=== PATIENT | male | born 1945 | race Caucasian/White ===

== ENCOUNTER 2017-12-18 16:08 | Emergency (ER) | payer MEDICARE ==
--- NOTE | 2017-12-18 16:42 | ER Document Report ---
ED Medical Screen (RME) - General Chief Complaint: Abnormal Lab Results Stated Complaint: ABNORMAL LABS Time Seen by Provider: 12/18/17 16:34 Notes: Patient told to come here due to abnormal labs. Apparently had a chemistry and lithium level performed as an outpatient a few days ago. Was told to come to the ED ER because of a high lithium and high potassium level. Patient states that he just does not feel good. Has been on antibiotics for 10 days for possible pneumonia I have greeted and performed a rapid initial assessment of this patient. A comprehensive ED assessment and evaluation of the patient, analysis of test results and completion of the medical decision making process will be conducted by additional ED providers. TRAVEL OUTSIDE OF THE [place] IN LAST 30 DAYS: No - Related Data Allergies/Adverse Reactions: No Known Drug Allergies Allergy (Verified 12/18/17 16:08) rabies immune globulin Allergy (Verified 12/18/17 16:10) Past Medical History Renal/ Medical History: Denies: Hx Peritoneal Dialysis Psychiatric Medical History: Reports: Hx Bipolar Disorder Past Surgical History: Reports: Hx Tonsillectomy Physical Exam - Vital signs Vitals: Temp Pulse Resp BP Pulse Ox 98.4 F 97 16 116/66 96 12/18/17 16:12 12/18/17 16:12 12/18/17 16:12 12/18/17 16:12 12/18/17 16:12 Course - Vital Signs Vital signs: Temp Pulse Resp BP Pulse Ox 98.4 F 97 16 116/66 96 12/18/17 16:12 12/18/17 16:12 12/18/17 16:12 12/18/17 16:12 12/18/17 16:12 Doctor's Discharge - Discharge Referrals: RADHIKA SAMANIEGO PA-C [Primary Care Provider] - Follow up as needed
--- NOTE | 2017-12-18 17:00 | RADIOLOGY REPORT (SQ) ---
EXAM DESCRIPTION: CHEST 2 VIEWS COMPLETED DATE/TIME: 12/18/2017 4:51 pm REASON FOR STUDY: cough COMPARISON: CT chest 11/29/2017 EXAM PARAMETERS: NUMBER OF VIEWS: two views TECHNIQUE: Digital Frontal and Lateral radiographic views of the chest acquired. RADIATION DOSE: NA LIMITATIONS: none FINDINGS: LUNGS AND PLEURA: A small left pleural effusion remains. No consolidation. No pneumothor ax. MEDIASTINUM AND HILAR STRUCTURES: No masses or contour abnormalities. HEART AND VASCULAR STRUCTURES: Heart normal size. No evidence for failure. BONES: No acute findings. HARDWARE: None in the chest. OTHER: No other significant finding. IMPRESSION: Small left pleural effusion. Overall findings are improved when compared to prior CTA c hest. TECHNICAL DOCUMENTATION: JOB ID: [id number] [employer]- All Rights Reserved Reading location - IP/workstation name: [email or web address]
[2017-12-18 17:32] LABS: ABSOLUTE BASOPHILS # (AUTO) 0.1 10^3/uL (0.0-0.2); ABSOLUTE EOSINOPHILS # (AUTO) 0.8 10^3/uL (0.0-0.6); ABSOLUTE LYMPHOCYTES (AUTO) 0.7 10^3/uL (0.5-4.7); ABSOLUTE MONOCYTES (AUTO) 0.7 10^3/uL (0.1-1.4); BASOPHILS % (AUTO) 0.9 % (0-2); EOSINOPHILS % (AUTO) 6.9 % (0-6); HEMATOCRIT 35.5 % (37.9-51.0); HEMOGLOBIN 11.6 g/dL (13.5-17.0); LYMPHOCYTES % (AUTO) 6.3 % (13-45); MEAN CORPUSCULAR HEMOGLOBIN 29.8 pg (27.0-33.4); MEAN CORPUSCULAR HGB CONC 32.6 g/dL (32.0-36.0); MEAN CORPUSCULAR VOLUME 91 fl (80-97); MONOCYTES % (AUTO) 6.1 % (3-13); PLATELET COUNT 250 10^3/uL (150-450); RED BLOOD COUNT 3.88 10^6/uL (4.35-5.55); RED CELL DISTRIBUTION WIDTH 14.2 % (11.5-14.0); SEGMENTED NEUTROPHILS % (AUTO) 79.8 % (42-78); TOTAL CELLS COUNTED % (AUTO) 100 %; WHITE BLOOD COUNT 11.2 10^3/uL (4.0-10.5)
[2017-12-18 17:40] LABS: APPEARANCE,URINE SLIGHTLY-CLOUDY; BILIRUBIN,URINE NEGATIVE (NEGATIVE); COLOR,URINE YELLOW; GLUCOSE, URINE NEGATIVE (NEGATIVE); KETONES,URINE NEGATIVE (NEGATIVE); LEUKOCYTE ESTERASE,URINE TRACE (NEGATIVE); NITRITE,URINE NEGATIVE (NEGATIVE); PROTEIN,URINE NEGATIVE (NEGATIVE); URINE SPECIFIC GRAVITY 1.012; UROBILINOGEN,URINE NEGATIVE mg/dL (<2.0)
[2017-12-18 17:48] LABS: ALANINE AMINOTRANSFERASE 44 U/L (21-72); ALKALINE PHOSPHATASE 88 U/L (38-126); ANION GAP 8 (5-19); ASPARTATE AMINO TRANSFERASE 25 U/L (17-59); BILIRUBIN,DIRECT 0.3 mg/dL (0.0-0.4); BILIRUBIN,TOTAL 0.4 mg/dL (0.2-1.3); BLOOD UREA NITROGEN 24 mg/dL (7-20); CALCIUM 10.5 mg/dL (8.4-10.2); CARBON DIOXIDE 25 mmol/L (22-30); CHLORIDE 109 mmol/L (98-107); CREATINE KINASE 29 U/L (55-170); GLUCOSE 138 mg/dL (75-110); POTASSIUM 5.8 mmol/L (3.6-5.0); TOTAL PROTEIN 6.8 g/dL (6.3-8.2)
[2017-12-18 17:51] LABS: LITHIUM 2.2 mEq/L (0.6-1.2)
--- NOTE | 2017-12-18 18:18 | ER Document Report ---
ED General - General Mode of Arrival: Ambulatory Information source: Patient TRAVEL OUTSIDE OF THE [place] IN LAST 30 DAYS: No <ANAHI HENDERSON - Last Filed: 12/18/17 22:11> <HUGO SCHOFIELD - Last Filed: 12/18/17 23:45> - General Chief Complaint: Abnormal Lab Results Stated Complaint: ABNORMAL LABS Time Seen by Provider: 12/18/17 16:34 Notes: Patient is a 69-year-old male who was sent to the emergency department from his PCP's office due to elevated lithium and potassium levels. Patient states that he went to see his PCP on 12/16/2015 due to shaking and had blood work drawn. Patient states that his PCP suggested he was having a reaction between his Bagnell and Levaquin further stating he was placed on Levaquin due to a possible pneumonia. Patient mentions that he has been having a problem with shaking lately which is abnormal for him. Patient is a poor historian therefore a limited history was obtained. Contacted patient's pharmacy, patient is currently prescribed Lisinopril 10mg, Simvastatin 40gm daily, Bagnell(300 mg 2 tabs at bedtime) and Levaquin 500mg for 10 days which was prescribed on 11/29/2017. (ANAHI HENDERSON) - Related Data Allergies/Adverse Reactions: No Known Drug Allergies Allergy (Verified 12/18/17 16:08) rabies immune globulin Allergy (Verified 12/18/17 16:10) Past Medical History - General Information source: Patient, Outside Facility Records - Social History Smoking Status: Unknown if Ever Smoked Family History: Reviewed & Not Pertinent Patient has suicidal ideation: No Patient has homicidal ideation: No Psychiatric Medical History: Reports: Hx Bipolar Disorder Past Surgical History: Reports: Hx Tonsillectomy <ANAHI HENDERSON - Last Filed: 12/18/17 22:11> Review of Systems - Review of Systems Constitutional: See HPI EENT: No symptoms reported Cardiovascular: No symptoms reported Respiratory: No symptoms reported Gastrointestinal: No symptoms reported Genitourinary: No symptoms reported Male Genitourinary: No symptoms reported Musculoskeletal: See HPI Skin: No symptoms reported Hematologic/Lymphatic: No symptoms reported Neurological/Psychological: See HPI -: Yes All other systems reviewed and negative <ANAHI HENDERSON - Last Filed: 12/18/17 22:11> Physical Exam <ANAHI HENDERSON - Last Filed: 12/18/17 22:11> <HUGO SCHOFIELD - Last Filed: 12/18/17 23:45> - Vital signs Vitals: Temp Pulse Resp BP Pulse Ox 98.4 F 97 16 116/66 96 12/18/17 16:12 12/18/17 16:12 12/18/17 16:12 12/18/17 16:12 12/18/17 16:12 - Notes Notes: GENERAL: Alert, interacts well. No acute distress. HEAD: Normocephalic, atraumatic. EYES: Pupils equal, round, and reactive to light. Extraocular movements intact. ENT: Oral mucosa moist, tongue midline. NECK: Full range of motion. Supple. Trachea midline. LUNGS: Clear to auscultation bilaterally, no wheezes, rales, or rhonchi. No respiratory distress. HEART: Regular rate and rhythm. No murmurs, gallops, or rubs. ABDOMEN: Soft, non-tender. Non-distended. Bowel sounds present in all 4 quadrants. EXTREMITIES: Moves all 4 extremities spontaneously. No edema, radial and dorsalis pedis pulses 2/4 bilaterally. No cyanosis. NEUROLOGICAL: Alert and oriented x3. Normal speech. Slight tremor. PSYCH: Normal affect, normal mood. SKIN: Warm, dry, normal turgor. No rashes or lesions noted. (ANAHI HENDERSON) Course - Laboratory Result Diagrams: 12/18/17 16:46 12/18/17 16:46 <ANAHI HENDERSON - Last Filed: 12/18/17 22:11> - Laboratory Result Diagrams: 12/18/17 16:46 12/18/17 22:24 <HUGO SCHOFIELD - Last Filed: 12/18/17 23:45> - Re-evaluation Re-evalutation: 12/18/17 23:34 After 3 L of IV fluids, repeat lab work shows a lithium level has fallen to 2.0 , potassium fall and 5.0 The patient will be discharged with instructions to stop taking the lithium, drink lots of water and other fluids over the next few days. He should follow-up with his primary care provider today or tomorrow for recheck. 12/18/17 23:41 The patient has urinated at least once. 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 He is asking for something to eat before he is discharged as he is quite hungry. (HUGO SCHOFIELD) - Vital Signs Vital signs: Temp Pulse Resp BP Pulse Ox 97.9 F 97 23 H 124/78 100 12/18/17 20:00 12/18/17 16:12 12/18/17 22:02 12/18/17 22:02 12/18/17 22:02 - Laboratory Laboratory results interpreted by me: 12/18/17 12/18/17 12/18/17 16:46 16:46 16:46 WBC 11.2 H RBC 3.88 L Hgb 11.6 L Hct 35.5 L RDW 14.2 H Seg Neutrophils % 79.8 H Lymphocytes % 6.3 L Eosinophils % 6.9 H Absolute Neutrophils 9.0 H Absolute Eosinophils 0.8 H Potassium 5.8 H Chloride 109 H Carbon Dioxide BUN 24 H Creatinine 1.42 H Est GFR ( Amer) 59 L Est GFR (Non-Af Amer) 49 L Glucose 138 H Calcium 10.5 H Creatine Kinase 29 L Ur Leukocyte Esterase TRACE H Bagnell 2.2 H* 12/18/17 22:24 WBC RBC Hgb Hct RDW Seg Neutrophils % Lymphocytes % Eosinophils % Absolute Neutrophils Absolute Eosinophils Potassium Chloride 114 H Carbon Dioxide 20 L BUN 21 H Creatinine Est GFR ( Amer) Est GFR (Non-Af Amer) 59 L Glucose Calcium Creatine Kinase Ur Leukocyte Esterase Bagnell 2.0 H* Discharge <ANAHI HENDERSON - Last Filed: 12/18/17 22:11> <HUGO SCHOFIELD - Last Filed: 12/18/17 23:45> - Discharge Clinical Impression: Hyperkalemia Bagnell toxicity Qualifiers: Encounter type: initial encounter Injury intent: accidental or unintentional Qualified Code(s): T56.891A - Toxic effect of other metals, accidental ( unintentional), initial encounter Condition: Stable Disposition: HOME, SELF-CARE Additional Instructions: Your lithium level was 2.2, the upper limits of the normal range is 1.2 After 3 L of IV fluids, your lithium level was down to 2.0 Your potassium level was also quite elevated but did come down with IV fluids. Your lab work suggests that you have become dehydrated due to inadequate fluid intake. It is very important that you drink plenty of water over the 24 hours. Stop taking the lithium until you see your doctor on for recheck. Follow-up with your doctor on . RETURN TO THE EMERGENCY ROOM IF ANY NEW OR WORSENING SYMPTOMS. Referrals: RADHIKA SAMANIEGO PA-C [Primary Care Provider] - 12/20/17 Scribe Attestation: 12/18/17 23:45 I personally performed the services described in the documentation, reviewed and edited the documentation which was dictated to the scribe in my presence, and it accurately records my words and actions. (HUGO SCHOFIELD) Scribe Documentation - Scribe Written by Margaux:: Margaux Mart, 12/18/2017 18:20 acting as scribe for :: Jigar <ANAHI HENDERSON - Last Filed: 12/18/17 22:11>
[2017-12-18] MEDS: NORMAL SALINE 1000 ML 1,000 ML IV PRN ×3 (18:19→19:13)
[2017-12-18] MEDS ORDERED: NORMAL SALINE 1000 ML 1,000 ML IV ONE (20:55)
[2017-12-18 23:03] LABS: ANION GAP 5 (5-19); BLOOD UREA NITROGEN 21 mg/dL (7-20); CALCIUM 8.7 mg/dL (8.4-10.2); CARBON DIOXIDE 20 mmol/L (22-30); CHLORIDE 114 mmol/L (98-107); GLUCOSE 86 mg/dL (75-110); SODIUM 139.1 mmol/L (137-145)
[2017-12-19 00:06] VITALS: BP 130/81
== END 2017-12-19 00:15 | disposition home or self-care (01) ==
LOC: ER 16:08
DX: E87.5 Hyperkalemia (principal); T56.891A Toxic effect of other metals, accidental (unintentional), initial encounter; R79.9 Abnormal finding of blood chemistry, unspecified; R25.1 Tremor, unspecified; Z79.899 Other long term (current) drug therapy
CPT/HCPCS: 36415; 71046; 80048; 80053; 80178; 81001; 82550; 85025; 96360; 96361; 99284

== ENCOUNTER 2018-02-18 10:53 | Inpatient (IN) | payer MEDICARE ==
--- NOTE | 2018-02-18 10:59 | ER Document Report ---
ED General - General Stated Complaint: CHEST PAIN Time Seen by Provider: 02/18/18 10:59 TRAVEL OUTSIDE OF THE [place] IN LAST 30 DAYS: No - HPI Patient complains to provider of: Chest pain Onset: Other - 73-year-old man presents for evaluation of shortness of breath and chest pain which began yesterday with the onset of discomfort tossing and turning followed by some shortness of breath which prompted him to go to his primary physician's office this morning at which time they noted his heart rate to be very fast and called for an ambulance. - Related Data Allergies/Adverse Reactions: No Known Drug Allergies Allergy (Verified 12/18/17 16:08) rabies immune globulin Allergy (Verified 12/18/17 16:10) Past Medical History - General Information source: Patient, Relative - Social History Smoking Status: Former Smoker Smoking Education Provided: No Frequency of alcohol use: None Drug Abuse: None Lives with: Family Family History: Reviewed & Not Pertinent Renal/ Medical History: Denies: Hx Peritoneal Dialysis Psychiatric Medical History: Reports: Hx Bipolar Disorder Past Surgical History: Reports: Hx Tonsillectomy Review of Systems - Review of Systems -: Yes All other systems reviewed and negative Physical Exam - Vital signs Vitals: BP 117/92 H 02/18/18 10:59 Interpretation: Tachycardic - General General appearance: Appears well, Alert - HEENT Head: Normocephalic, Atraumatic Eyes: Normal Pupils: PERRL - Respiratory Respiratory status: No respiratory distress Chest status: Nontender Breath sounds: Normal Chest palpation: Normal - Cardiovascular Rhythm: Irregularly irregular, Tachycardia - Abdominal Inspection: Normal Distension: No distension Bowel sounds: Normal Tenderness: Nontender Organomegaly: No organomegaly - Back Back: Normal, Nontender - Extremities General upper extremity: Normal inspection, Nontender, Normal color, Normal ROM , Normal temperature General lower extremity: Normal inspection, Nontender, Normal color, Normal ROM , Normal temperature, Normal weight bearing. No: Sean's sign - Neurological Neuro grossly intact: Yes Cognition: Normal Orientation: AAOx4 Carlisle Coma Scale Eye Opening: Spontaneous Carl[place] Coma Scale Verbal: Oriented Basim Coma Scale Motor: Obeys Commands Basim Coma Scale Total: 15 Speech: Normal Motor strength normal: LUE, RUE, LLE, RLE Sensory: Normal - Psychological Associated symptoms: Normal affect, Normal mood Course - Re-evaluation Re-evalutation: 02/19/18 13:03 73-year-old male presents for evaluation of tachycardia cardia. Notes that he had been short of breath with some chest pain prior presented to his primary physicians today at which time his heart rate was noted to be around 180 bpm. EMS upon arrival administered 500 mL of normal saline which improved his heart rate from the 180 range to the 120 or H. Initial evaluation is notable that this patient is profoundly tachycardic. 02/19/18 15:05 He was given diltiazem 10 mg after which his heart rate improved however remained tachycardic. He continued to be well-appearing though stating that he felt much better. I did administer fluids and recurrent 500 mL boluses and redosed his diltiazem at 10 mg. He had only a moderate improvement in his rate again, because of his persistent tachycardia chest pain and new onset fibrillation believe he will shall require hospitalization. His EKG did demonstrate slight depressions consistent with a strain pattern. He however said he felt much better after administration of medications. I did check a lithium level in addition to his cardiac markers to see if incidentally he had become supratherapeutic. His lithium level was in normal limits. Contacted the on-call hospitalist for the admission and monitoring of this patient, at the time of admission he remained tachycardic. - Vital Signs Vital signs: Temp Pulse Resp BP Pulse Ox 98.3 F 81 18 147/86 H 96 02/19/18 16:53 02/19/18 16:53 02/19/18 16:53 02/19/18 16:12 02/19/18 16:53 - Laboratory Result Diagrams: 02/19/18 05:22 02/19/18 05:22 Laboratory results interpreted by me: 02/18/18 02/18/18 10:25 10:25 WBC 12.6 H RDW 14.9 H Absolute Neutrophils 9.1 H Sodium 145.9 H Calcium 10.8 H Creatine Kinase 47 L Critical Care Note - Critical Care Note Total time excluding time spent on procedures (mins): 35 Discharge - Discharge Clinical Impression: Atrial fibrillation with RVR Atrial fibrillation Qualifiers: Atrial fibrillation type: unspecified Qualified Code(s): I48.91 - Unspecified atrial fibrillation Chest pain Qualifiers: Chest pain type: unspecified Qualified Code(s): R07.9 - Chest pain, unspecified Condition: Good Disposition: ADMITTED INPATIENT Admitting Provider: Hospitalist Unit Admitted: Telemetry
[2018-02-18] MEDS ORDERED: NORMAL SALINE 500 ML IV ONE ×2 (11:07→12:41)
[2018-02-18] MEDS ORDERED: DILTIAZEM HCL INJ 25 MG/5 ML VIAL IV ONE ×2 (11:15→12:41)
[2018-02-18 11:32] LABS: ABSOLUTE BASOPHILS # (AUTO) 0.1 10^3/uL (0.0-0.2); ABSOLUTE EOSINOPHILS # (AUTO) 0.2 10^3/uL (0.0-0.6); ABSOLUTE MONOCYTES (AUTO) 1.2 10^3/uL (0.1-1.4); ABSOLUTE NEUT (AUTO) 9.1 10^3/uL (1.7-8.2); BASOPHILS % (AUTO) 0.7 % (0-2); HEMATOCRIT 42.5 % (37.9-51.0); HEMOGLOBIN 14.2 g/dL (13.5-17.0); LYMPHOCYTES % (AUTO) 16.2 % (13-45); MEAN CORPUSCULAR HEMOGLOBIN 29.8 pg (27.0-33.4); MEAN CORPUSCULAR HGB CONC 33.4 g/dL (32.0-36.0); MEAN CORPUSCULAR VOLUME 89 fl (80-97); MONOCYTES % (AUTO) 9.2 % (3-13); PLATELET COUNT 245 10^3/uL (150-450); RED BLOOD COUNT 4.77 10^6/uL (4.35-5.55); RED CELL DISTRIBUTION WIDTH 14.9 % (11.5-14.0); SEGMENTED NEUTROPHILS % (AUTO) 71.9 % (42-78); TOTAL CELLS COUNTED % (AUTO) 100 %; WHITE BLOOD COUNT 12.6 10^3/uL (4.0-10.5)
[2018-02-18 11:56] LABS: ALANINE AMINOTRANSFERASE 26 U/L (21-72); ALBUMIN 4.7 g/dL (3.5-5.0); ALKALINE PHOSPHATASE 65 U/L (38-126); ANION GAP 14 (5-19); ASPARTATE AMINO TRANSFERASE 27 U/L (17-59); BILIRUBIN,DIRECT 0.3 mg/dL (0.0-0.4); BILIRUBIN,TOTAL 0.7 mg/dL (0.2-1.3); BLOOD UREA NITROGEN 13 mg/dL (7-20); CALCIUM 10.8 mg/dL (8.4-10.2); CARBON DIOXIDE 26 mmol/L (22-30); CHLORIDE 106 mmol/L (98-107); CREATINE KINASE 47 U/L (55-170); GLUCOSE 106 mg/dL (75-110); LITHIUM 0.6 mEq/L (0.6-1.2); POTASSIUM 4.9 mmol/L (3.6-5.0); SODIUM 145.9 mmol/L (137-145); TOTAL PROTEIN 7.9 g/dL (6.3-8.2)
--- NOTE | 2018-02-18 12:22 | RADIOLOGY REPORT (SQ) ---
EXAM DESCRIPTION: CHEST SINGLE VIEW COMPLETED DATE/TIME: 02/18/2018 11:24 am REASON FOR STUDY: bed 4 cp COMPARISON: B 12/18/2017 EXAM PARAMETERS: NUMBER OF VIEWS: One view. TECHNIQUE: Single frontal radiographic view of the chest acquired. RADIATION DOSE: NA LIMITATIONS: None. FINDINGS: LUNGS AND PLEURA: No opacities, masses or pneumothorax. Interval resolution of the very s mall left pleural effusion. MEDIASTINUM AND HILAR STRUCTURES: No masses. Contour normal. HEART AND VASCULAR STRUCTURES: Heart normal in size. Normal vasculature. BONES: No acute findings. HARDWARE: None in the chest. OTHER: No other significant finding. IMPRESSION: 1. NO ACUTE RADIOGRAPHIC FINDING IN THE CHEST. TECHNICAL DOCUMENTATION: JOB ID: [id number] [employer]- All Rights Reserved Reading location - IP/workstation name: [email or web address]
[2018-02-18 12:24] LABS: CREATINE KINASE MB 1.25 ng/mL (<4.55); TROPONIN I < 0.012 ng/mL
--- NOTE | 2018-02-18 12:47 | EKG REPORT ---
SEVERITY:- ABNORMAL ECG - ATRIAL FIBRILLATION, V-RATE 107-174 BORDERLINE LEFT AXIS DEVIATION : Confirmed by: Junior Britton MD 18-Feb-2018 12:47:34
--- NOTE | 2018-02-18 13:45 | PDOC H&P ---
History of Present Illness Admission Date/PCP: 02/18/18 13:01 RADHIKA SAMANIEGO PA-C History of Present Illness: JORDON IRWIN is a 73 year old very pleasant male past medical history of iron deficiency anemia, hypertension and bipolar disorder who was treated for lithium toxicity on 12/18/2017 here at [facility] due to levofloxacin given for her for his pneumonia. Patient states that when pneumonia was cleared he started having nonradiating and on tender epigastric pressure like feeling exacerbated by coughing which got worse for the last 2-3 days associated one episode of lightheadedness and occasional palpitations. He went to see his PCP today and was found to have a high pulses EKG was done which confirmed that patient was in A. fib patient was sent to the [facility] for further evaluation. In ED he was found to be in A. fib was started on Cardizem drip and volume resuscitation which patient responded to. He denies any syncope, chest pain, shortness of breath, fever, nausea, vomiting , diarrhea Past Medical History Psychiatric Medical History: Reports: Bipolar Disorder Past Surgical History Past Surgical History: Reports: Tonsillectomy Social History Smoking Status: Unknown if Ever Smoked Family History Family History: Reviewed & Not Pertinent Parental Family History Reviewed: Yes Children Family History Reviewed: Yes Sibling(s) Family History Reviewed.: Yes Medication/Allergy Home Medications: Lisinopril 10 mg PO DAILY 12/18/17 Fairgarden Carbonate 300 mg PO DAILY 12/18/17 Simvastatin 40 mg PO QHS 12/18/17 Allergies/Adverse Reactions: No Known Drug Allergies Allergy (Verified 12/18/17 16:08) rabies immune globulin Allergy (Verified 12/18/17 16:10) Review of Systems Constitutional: ABSENT: chills, fever(s), headache(s), weight gain, weight loss Eyes: ABSENT: visual disturbances Ears: ABSENT: hearing changes Cardiovascular: ABSENT: chest pain, dyspnea on exertion, edema, orthropnea, palpitations Respiratory: ABSENT: cough, hemoptysis Gastrointestinal: ABSENT: abdominal pain, constipation, diarrhea, hematemesis, hematochezia, nausea, vomiting Neurological: ABSENT: abnormal gait, abnormal speech, confusion, dizziness, focal weakness, syncope Physical Exam General appearance: PRESENT: no acute distress, well-developed, well-nourished Head exam: PRESENT: atraumatic, normocephalic Respiratory exam: PRESENT: clear to auscultation jill. ABSENT: rales, rhonchi, wheezes Cardiovascular exam: PRESENT: irregular rhythm, tachycardia. ABSENT: diastolic murmur, rubs, systolic murmur GI/Abdominal exam: PRESENT: normal bowel sounds, soft. ABSENT: distended, guarding, mass, organolmegaly, rebound, tenderness Neurological exam: PRESENT: alert, awake, oriented to person, oriented to place , oriented to time, oriented to situation, CN II-XII grossly intact. ABSENT: motor sensory deficit Skin exam: PRESENT: dry, intact, warm. ABSENT: cyanosis, rash Results Impressions: Chest X-Ray 02/18/18 10:55 IMPRESSION: 1. NO ACUTE RADIOGRAPHIC FINDING IN THE CHEST. Assessment & Plan - Diagnosis (1) New onset a-fib Is this a current diagnosis for this admission?: Yes Plan: [id number] Score 3 Stable, on the to Cardizem. Admit to telemetry, aspirin, Cardizem drip, TSH level. She was counseled about the stability for buttermaker anticoagulation and the risk and benefit. Patient stated he will think about it. Admit to telemetry, 2D echo. Consult cardiology for possible cardioversion or medical management. (2) History of iron deficiency anemia Is this a current diagnosis for this admission?: Yes Plan: Hemoglobin within normal limits. Denies any external source of bleeding. Continue ferrous sulfate. (3) Hypertension Is this a current diagnosis for this admission?: Yes Plan: Intensive, euvolemic. Restart home meds. Adjust dosage as needed. (4) Hyperlipidemia Is this a current diagnosis for this admission?: Yes Plan: Restart on statins. (5) Bipolar 1 disorder Is this a current diagnosis for this admission?: Yes Plan: Fairgarden within normal limits. Continue lithium.
[2018-02-18] MEDS ORDERED: IPRATROPIUM/ALBUTEROL 0.5-2.5 MG/3 ML AMPUL NEB PRN (13:52)
[2018-02-18] MEDS ORDERED: ACETAMINOPHEN 325 MG TABLET PO PRN (13:52)
[2018-02-18] MEDS ORDERED: ONDANSETRON HCL INJ/PF 4 MG/2 ML SDV IV PRN (13:52)
[2018-02-18 14:59] LABS: FREE T3 3.1 pg/mL (2.77-5.27); FREE T4 (FREE THYROXINE) 0.83 ng/dL (0.78-2.19)
[2018-02-18 15:13] LABS: THYROID STIMULATING HORMONE 0.95 uIU/mL (0.47-4.68)
[2018-02-18] MEDS: DILTIAZEM HCL/D5W 125 MG/125 ML RTUINJ IV PRN (15:21)
[2018-02-18] MEDS: ASPIRIN 81 MG TABLET, CHEWABLE PO SCH (16:00)
[2018-02-18] MEDS: NORMAL SALINE 1000 ML 1,000 ML IV PRN ×2 (17:47→19:54)
[2018-02-18] MEDS ORDERED: METOPROLOL TARTRATE PF/INJ 5 MG/5 ML SDV IV PRN (18:23)
[2018-02-18] MEDS ORDERED: DIGOXIN INJ 0.5 MG/2 ML AMPULE IV ONE ×2 (20:00→20:30)
[2018-02-18] MEDS ORDERED: NORMAL SALINE 1000 ML 1,000 ML IV ONE (20:00)
[2018-02-18] MEDS ORDERED: SIMVASTATIN 40 MG TABLET PO SCH (22:00)
[2018-02-18] MEDS ORDERED: NORMAL SALINE 1000 ML 1,000 ML IV PRN (23:24)
[2018-02-19] MEDS: DILTIAZEM HCL/D5W 125 MG/125 ML RTUINJ IV PRN (05:25)
[2018-02-19 05:54] LABS: ABSOLUTE BASOPHILS # (AUTO) 0.1 10^3/uL (0.0-0.2); ABSOLUTE EOSINOPHILS # (AUTO) 0.3 10^3/uL (0.0-0.6); ABSOLUTE LYMPHOCYTES (AUTO) 1.5 10^3/uL (0.5-4.7); ABSOLUTE MONOCYTES (AUTO) 0.8 10^3/uL (0.1-1.4); ABSOLUTE NEUT (AUTO) 6.3 10^3/uL (1.7-8.2); BASOPHILS % (AUTO) 0.6 % (0-2); EOSINOPHILS % (AUTO) 3.1 % (0-6); HEMATOCRIT 31.5 % (37.9-51.0); LYMPHOCYTES % (AUTO) 16.4 % (13-45); MEAN CORPUSCULAR HGB CONC 33.7 g/dL (32.0-36.0); MEAN CORPUSCULAR VOLUME 89 fl (80-97); MONOCYTES % (AUTO) 8.7 % (3-13); PLATELET COUNT 160 10^3/uL (150-450); RED BLOOD COUNT 3.54 10^6/uL (4.35-5.55); RED CELL DISTRIBUTION WIDTH 14.5 % (11.5-14.0); SEGMENTED NEUTROPHILS % (AUTO) 71.2 % (42-78); TOTAL CELLS COUNTED % (AUTO) 100 %; WHITE BLOOD COUNT 8.8 10^3/uL (4.0-10.5)
[2018-02-19 06:01] LABS: HEMOGLOBIN 10.6 g/dL (13.5-17.0)
[2018-02-19 06:09] LABS: ALANINE AMINOTRANSFERASE 25 U/L (21-72); ALBUMIN 2.9 g/dL (3.5-5.0); ALKALINE PHOSPHATASE 39 U/L (38-126); ANION GAP 10 (5-19); ASPARTATE AMINO TRANSFERASE 19 U/L (17-59); BILIRUBIN,DIRECT 0.1 mg/dL (0.0-0.4); BILIRUBIN,TOTAL 0.4 mg/dL (0.2-1.3); BLOOD UREA NITROGEN 11 mg/dL (7-20); CALCIUM 8.6 mg/dL (8.4-10.2); CARBON DIOXIDE 20 mmol/L (22-30); CHLORIDE 115 mmol/L (98-107); GLUCOSE 101 mg/dL (75-110); POTASSIUM 4.6 mmol/L (3.6-5.0); SODIUM 145.4 mmol/L (137-145); TOTAL PROTEIN 5.1 g/dL (6.3-8.2)
[2018-02-19] MEDS: ASPIRIN 81 MG TABLET, CHEWABLE PO SCH (09:59)
[2018-02-19] MEDS ORDERED: LITHIUM CARBONATE 300 MG CAPSULE PO SCH ×2 (10:00→22:00)
[2018-02-19] MEDS ORDERED: LISINOPRIL 10 MG TABLET PO SCH (10:00)
[2018-02-19] MEDS ORDERED: (PENDING PHARMACY ID) (Lithium Carbonate [Lithium Carbonate] 300 MG) PO SCH (10:00)
[2018-02-19] MEDS ORDERED: ENOXAPARIN SODIUM INJ 40 MG/0.4 ML DISP.SYRIN SUBCUT SCH (10:00)
--- NOTE | 2018-02-19 11:30 | Physician Advisory Note ---
Physician Advisor ProgressNote .: Pursuant to the plan for [facility], I have reviewed the medical record for this patient. Physician Advisor Statement: Hgb was 11.6 on 12/18/17. Please consider documenting, if you agree: 1. "Acute hypernatremia, suspect due to " 2. "Fe defic anemia, suspect due to " [vs "h/o ..." - which would mean it was resolved & requires no ongoing tx] 3. R.e. dx #3 in H&P, "HTN - intensive" - typo? clarification? 4. Medical necessity: Please document clinical reasons pt is not felt to be safe for d/c home today, & will be appropriate for the Inpt status that is ordered. Status: Afib new dx is typically an Obs status dx initially, with good potential for d/c the next day after control of rate/sx. This Medicare pt w/Fe defic anemia, bipolar d/o, in w/new onset Afib, CP, lightheadedness - given Cardizem IV x2 in ED, then attending started Cardizem gtt + PRN IV metoprolol. Subsequently, pt developed persistent hypotension x hrs in the 80s-90s/50s overnight, needed "NOW" dose of IV dig at 20:00 & another at higher dose at 20:30 [for Afib control], along w/IV NS 1L boluses at 20:00 & 23:24 [to support BP], while stopping CArdizem gtt. Suspect attending will consider pt unsafe for d/c today, needing to monitor response to a new regimen for Afib/HR control throughout the day & night tonight (2nd MN) or longer to be sure pt will be safe on d/c. Therefore, Inpt status appears appropriate after all in this case. If this suspicion is not the case, please contact me for re-assessment of status appropriateness. Thanks, CK [phone]
--- NOTE | 2018-02-19 13:32 | EKG REPORT ---
SEVERITY:- OTHERWISE NORMAL ECG - SINUS RHYTHM BORDERLINE LEFT AXIS DEVIATION : Confirmed by: Junior Britton MD 19-Feb-2018 13:32:09
[2018-02-19 16:23] VITALS: BP 147/86
[2018-02-19] MEDS ORDERED: METOPROLOL TARTRATE 25 MG TABLET PO ONE (16:31)
[2018-02-19] MEDS ORDERED: METOPROLOL SUCCINATE 25 MG TAB.SR.24H PO ONE (16:46)
--- NOTE | 2018-02-19 19:22 | PDOC DISCHARGE SUMMARY ---
General - Admit/Disc Date/PCP Admission Date/Primary Care Provider: 02/18/18 13:01 RADHIKA SAMANIEGO PA-C Discharge Date: 02/19/18 - Discharge Diagnosis (1) Atrial fibrillation Is this a current diagnosis for this admission?: Yes Summary: 04/21/2017 she was admitted with new onset atrial fibrillation, he was in sinus rhythm no problems during the hospital stay. The powder worker tnt Dr. Al saw the patient he recommended to start him on aspirin 325 mg p.o. daily metoprolol XL 25 mg p.o. daily as an outpatient he is going to see the patient in his office in few days time. During the hospital stay Cardizem drip was started. Chronic was discontinued. (2) History of iron deficiency anemia Is this a current diagnosis for this admission?: Yes Summary: 02/19/2018 patient's hemoglobin is 10.6 stable. Is to continue ferrous sulfate. (3) Hypertension Is this a current diagnosis for this admission?: Yes Summary: 02/19/2018 patient blood pressure stable during the hospital stay he is on lisinopril 10 mg daily (4) Bipolar 1 disorder Is this a current diagnosis for this admission?: Yes Summary: 02/19/2018 has history of bipolar disorder on lithium at home we advised him to continue the home medication. - Additional Information Resuscitation Status: Full Code Discharge Diet: As Tolerated, Cardiac Discharge Activity: Activity As Tolerated Prescriptions: Aspirin [Aspirin 325 mg Tablet] 325 mg PO DAILY 30 Days tablet Metoprolol Succinate [Toprol Xl 25 mg Tab.sr] 25 mg PO DAILY #30 tab.sr.24h Home Medications: Lisinopril 10 mg PO DAILY 12/18/17 Marie Carbonate 300 mg PO DAILY 12/18/17 Simvastatin 40 mg PO QHS 12/18/17 Aspirin [Aspirin 325 mg Tablet] 325 mg PO DAILY 30 Days tablet 02/19/18 Metoprolol Succinate [Toprol Xl 25 mg Tab.sr] 25 mg PO DAILY #30 tab.sr.24h History of Present Illness History of Present Illness: JORDON IRWIN is a 73 year old male with past medical history of iron deficiency anemia hypertension bipolar disorder who is on lithium at home went to see the PCP and found to have high pulses and EKG was done and confirmed to have atrial fibrillation he was sent to the emergency room for further evaluation. In the emergency room found to have A. fib he was started on Cardizem drip. Cardiology consult was done. Later on Cardizem drip was discontinued and patient was cleared by the powder worker tnt to go home. Physical Exam Vital Signs: Temp Pulse Resp BP Pulse Ox 98.3 F 81 18 147/86 H 96 02/19/18 16:53 02/19/18 16:53 02/19/18 16:53 02/19/18 16:12 02/19/18 16:53 Intake & Output 02/18/18 02/19/18 02/20/18 06:59 06:59 06:59 Intake Total 1778 118 Output Total 250 Balance 1778 -132 Weight 75.1 kg General appearance: PRESENT: no acute distress Head exam: PRESENT: atraumatic Eye exam: PRESENT: PERRLA Neck exam: ABSENT: carotid bruit, JVD, lymphadenopathy, thyromegaly Respiratory exam: PRESENT: clear to auscultation jill. ABSENT: rales, rhonchi, wheezes Cardiovascular exam: PRESENT: RRR. ABSENT: diastolic murmur, rubs, systolic murmur GI/Abdominal exam: PRESENT: normal bowel sounds, soft. ABSENT: distended, guarding, mass, organolmegaly, rebound, tenderness Neurological exam: PRESENT: alert, awake, oriented to person, oriented to place , oriented to time, oriented to situation, CN II-XII grossly intact. ABSENT: motor sensory deficit Psychiatric exam: PRESENT: appropriate affect, normal mood. ABSENT: homicidal ideation, suicidal ideation Results Laboratory Results: 02/19/18 05:22 02/19/18 05:22 02/19/18 02/19/18 05:22 05:22 WBC 8.8 RBC 3.54 L Hgb 10.6 L D Hct 31.5 L MCV 89 MCH 30.0 MCHC 33.7 RDW 14.5 H Plt Count 160 Seg Neutrophils % 71.2 Lymphocytes % 16.4 Monocytes % 8.7 Eosinophils % 3.1 Basophils % 0.6 Absolute Neutrophils 6.3 Absolute Lymphocytes 1.5 Absolute Monocytes 0.8 Absolute Eosinophils 0.3 Absolute Basophils 0.1 Sodium 145.4 H Potassium 4.6 Chloride 115 H Carbon Dioxide 20 L Anion Gap 10 BUN 11 Creatinine 0.95 Est GFR ( Amer) > 60 Est GFR (Non-Af Amer) > 60 Glucose 101 Calcium 8.6 Magnesium 1.9 Total Bilirubin 0.4 AST 19 ALT 25 Alkaline Phosphatase 39 Total Protein 5.1 L Albumin 2.9 L 02/18/18 18:05 Troponin I < 0.012 Impressions: Chest X-Ray 02/18/18 10:55 IMPRESSION: 1. NO ACUTE RADIOGRAPHIC FINDING IN THE CHEST. Qualifiers - * PATIENT BEING DISCHARGED WITH ANY OF THE FOLLOWING DIAGNOSIS: No VTE patient discharged on overlapping Therapy?: Yes
--- NOTE | 2018-02-19 20:45 | Progress Note ---
Provider Note Provider Note: CARDIOLOGY CONSULTATION BY DR.LAKSHMI VINES ON 02/19/18.
[2018-02-20] MEDS ORDERED: ASPIRIN 325 MG TABLET PO SCH (10:00)
[2018-02-20] MEDS ORDERED: METOPROLOL SUCCINATE 25 MG TAB.SR.24H PO SCH (10:00)
== END 2018-02-19 17:39 | disposition home or self-care (01) | DRG 310 ==
LOC: ER 10:53 → EH 13:01 → 3S 14:55
PROVIDERS: ADMIT Internal Medicine; ATTEND Internal Medicine
DX: I48.91 Unspecified atrial fibrillation (principal); E78.5 Hyperlipidemia, unspecified; F31.9 Bipolar disorder, unspecified
CPT/HCPCS: 36415; 71045; 80053; 80178; 82550; 82553; 83735; 84439; 84443; 84481; 84484; 85025; 93005; 93010; 96361; 96374; 99291; G8978-GP; G8979-GP; G8980-GP; J1160; J3490; J7030; J7040